=== PATIENT | female | born 1960 | race Hispanic/Latino ===

== ENCOUNTER → 2019-05-13 | Outpatient (CLI) | payer OTHER | END | disposition home or self-care (01) | LOC: OIH 13:34 | PROVIDERS: ATTEND Internal Medicine | DX: M19.071 Primary osteoarthritis, right ankle and foot (principal); M21.072 Valgus deformity, not elsewhere classified, left ankle; M25.774 Osteophyte, right foot; M25.775 Osteophyte, left foot; M85.842 Other specified disorders of bone density and structure, left hand; M85.871 Other specified disorders of bone density and structure, right ankle and foot; M85.841 Other specified disorders of bone density and structure, right hand; M06.4 Inflammatory polyarthropathy | CPT/HCPCS: 73130; 73630 ==